=== PATIENT | male | born 1950 | race Hispanic/Latino ===

== ENCOUNTER → 2022-01-20 | Outpatient (CLI) | payer BC | END | disposition home or self-care (01) | LOC: SHCH 08:46 | PROVIDERS: ATTEND Internal Medicine Cardiovascular Disease | DX: I70.293 Other atherosclerosis of native arteries of extremities, bilateral legs (principal) | CPT/HCPCS: 93925 ==

== ENCOUNTER → 2022-03-14 | Outpatient (CLI) | payer BC ==
[~2022-03-14] MED LIST: ACET-2247 PO
== END | disposition home or self-care (01) ==
LOC: RAH 12:30
PROVIDERS: ATTEND Internal Medicine Cardiovascular Disease
DX: R01.1 Cardiac murmur, unspecified (principal)
CPT/HCPCS: 93306

== ENCOUNTER 2022-04-21 22:08 | Emergency (ER) | payer BC ==
[~2022-04-21] VITALS: Ht 165.1 cm; Wt 104.3 kg
[2022-04-21 22:12] VITALS: BP 167/76
[2022-04-21] MEDS ORDERED: HYDROCODONE/ACETAMINOPHEN 5/325 MG TAB PO ONE (23:00)
[2022-04-21] MEDS ORDERED: ACET-2247 PO (23:11)
== END 2022-04-21 23:27 | disposition home or self-care (01) ==
LOC: EDH 22:08
DX: S93.401A Sprain of unspecified ligament of right ankle, initial encounter (principal); S93.601A Unspecified sprain of right foot, initial encounter; E11.9 Type 2 diabetes mellitus without complications; E03.9 Hypothyroidism, unspecified; I10 Essential (primary) hypertension; E66.9 Obesity, unspecified; Z68.38 Body mass index [BMI] 38.0-38.9, adult; X58.XXXA Exposure to other specified factors, initial encounter; Y93.89 Activity, other specified; Y92.89 Other specified places as the place of occurrence of the external cause; Y99.8 Other external cause status
CPT/HCPCS: 73610; 73630